=== PATIENT | female | born 1930 | race Caucasian/White ===

== ENCOUNTER 2017-10-06 20:29 | Emergency (ER) | payer MEDICARE ==
[2017-10-06 20:45] VITALS: BP 148/77
== END 2017-10-06 21:29 | disposition left against medical advice (07) ==
LOC: ER 20:29
DX: Z53.21 Procedure and treatment not carried out due to patient leaving prior to being seen by health care provider (principal)

== ENCOUNTER 2018-01-17 09:24 | Emergency (ER) | payer OTHER, MEDICARE ==
[2018-01-17] MEDS ORDERED: ACETAMINOPHEN 325 MG TABLET PO ONE (09:46)
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
[2018-01-17 11:02] LABS: HEMATOCRIT 39.3 % (36.0-47.0); HEMOGLOBIN 13.3 g/dL (12.0-15.5); MEAN CORPUSCULAR HEMOGLOBIN 28.3 pg (27.0-33.4); MEAN CORPUSCULAR HGB CONC 33.9 g/dL (32.0-36.0); MEAN CORPUSCULAR VOLUME 84 fl (80-97); PLATELET COUNT 146 10^3/uL (150-450); RED BLOOD COUNT 4.69 10^6/uL (3.72-5.28); RED CELL DISTRIBUTION WIDTH 14.5 % (11.5-14.0); WHITE BLOOD COUNT 9.6 10^3/uL (4.0-10.5)
[2018-01-17 11:13] LABS: ALANINE AMINOTRANSFERASE 20 U/L (9-52); ALBUMIN 4.1 g/dL (3.5-5.0); ALKALINE PHOSPHATASE 59 U/L (38-126); ANION GAP 9 (5-19); ASPARTATE AMINO TRANSFERASE 39 U/L (14-36); BILIRUBIN,DIRECT 0.3 mg/dL (0.0-0.4); BLOOD UREA NITROGEN 24 mg/dL (7-20); CALCIUM 9.4 mg/dL (8.4-10.2); CARBON DIOXIDE 28 mmol/L (22-30); CHLORIDE 109 mmol/L (98-107); GLUCOSE 135 mg/dL (75-110); LIPASE 103.3 U/L (23-300); POTASSIUM 3.8 mmol/L (3.6-5.0); SODIUM 145.6 mmol/L (137-145)
[2018-01-17 11:42] LABS: ABSOLUTE LYMPHOCYTES# (MANUAL) 0.5 10^3/uL (0.5-4.7); ABSOLUTE MONOCYTES # (MANUAL) 0.1 10^3/uL (0.1-1.4); BAND NEUTROPHILS % (MANUAL) 2 % (3-5); BASOPHILS % (MANUAL) 0 % (0-2); EOSINOPHILS % (MANUAL) 0 % (0-6); LYMPHOCYTES % (MANUAL) 5 % (13-45); MONOCYTES % (MANUAL) 1 % (3-13); SEGMENTED NEUTROPHILS % (MAN) 92 % (42-78); TOTAL CELLS COUNTED 100
[2018-01-17 11:43] LABS: OVALOCYTES 1+; PLATELET COMMENT DECREASED; POIKILOCYTOSIS 1+
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
[2018-01-17 13:21] VITALS: BP 145/72
== END 2018-01-17 13:20 | disposition home or self-care (01) ==
LOC: ER 09:24
DX: S22.088A Other fracture of T11-T12 vertebra, initial encounter for closed fracture (principal); S32.029A Unspecified fracture of second lumbar vertebra, initial encounter for closed fracture; R10.32 Left lower quadrant pain; V49.40XA Driver injured in collision with unspecified motor vehicles in traffic accident, initial encounter; I10 Essential (primary) hypertension; Z90.710 Acquired absence of both cervix and uterus
CPT/HCPCS: 36415; 74177; 80053; 83690; 85025; 99284

== ENCOUNTER 2018-01-19 18:42 | Inpatient (IN) | payer OTHER, MEDICARE ==
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
[2018-01-19] MEDS ORDERED: MAG HYDROX/AL HYDROX/SIMETH SUSP 30 ML UDCUP PO PRN (20:05)
[2018-01-19] MEDS ORDERED: OXYCODONE HCL IR 5 MG TABLET PO ONE (20:05)
[2018-01-19] MEDS ORDERED: ACETAMINOPHEN 325 MG TABLET PO PRN (20:05)
[2018-01-19] MEDS ORDERED: IPRATROPIUM/ALBUTEROL 0.5-2.5 MG/3 ML AMPUL NEB PRN (20:05)
[2018-01-19] MEDS ORDERED: LIDOCAINE 5% (700 MG) TRANSDERMAL ADH..PATCH TP ONE (20:05)
[2018-01-19] MEDS ORDERED: MAGNESIUM HYDROXIDE SUSP 30 ML UDCUP PO PRN (20:05)
[2018-01-19] MEDS ORDERED: ACETAMINOPHEN 325 MG TABLET PO ONE (20:05)
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
--- NOTE | 2018-01-19 20:32 | RADIOLOGY REPORT (SQ) ---
EXAM DESCRIPTION: CT PELVIS WITHOUT COMPLETED DATE/TIME: 01/19/2018 8:22 pm REASON FOR STUDY: left hip pain, eval occult fx COMPARISON: None. TECHNIQUE: CT scan of the pelvis performed without intravenous or oral contrast. Images reviewed wi th soft tissue and bone windows. Reconstructed coronal and sagittal MPR images reviewed. All images stored on PACS. All CT scanners at this facility use dose modulation, iterative reconstruction, and/or weight based d osing when appropriate to reduce radiation dose to as low as reasonably achievable (ALARA). [facility]: Dose Right [facility]: CareDose [facility]: Dose Right [facility]: Teradose 4D [facility]: Smart ParkVu RADIATION DOSE: CT Rad equipment meets quality standard of care and radiation dose reduction techniq ues were employed. CTDIvol: 12.0 mGy. DLP: 390 mGy-cm. mGy. LIMITATIONS: None. FINDINGS: PELVIC BONES: No acute fracture. No worrisome bone lesions. VISUALIZED SPINE: No acute findings. HIP(S): No acute fracture or dislocation. No worrisome bone lesions. PELVIC SOFT TISSUES: No significant findings. EXTRAPELVIC SOFT TISSUES: No significant findings. OTHER: No other significant finding. IMPRESSION: NO ACUTE OR SIGNIFICANT FINDINGS. TECHNICAL DOCUMENTATION: JOB ID: [id number] Quality ID # [id number]: Final reports with documentation of one or more dose reduction techniques (e.g., Au tomated exposure control, adjustment of the mA and/or kV according to patient size, use of iterative reconstruction technique) 2010 [employer]- All Rights Reserved Reading location - IP/workstation name: [email or web address]
[2018-01-19 21:26] LABS: ANION GAP 9 (5-19); BLOOD UREA NITROGEN 28 mg/dL (7-20); CALCIUM 9.4 mg/dL (8.4-10.2); CARBON DIOXIDE 25 mmol/L (22-30); CHLORIDE 109 mmol/L (98-107); CREATINE KINASE 73 U/L (30-135); GLUCOSE 97 mg/dL (75-110); SODIUM 142.8 mmol/L (137-145)
[2018-01-19 21:32] LABS: ABSOLUTE BASOPHILS # (AUTO) 0.1 10^3/uL (0.0-0.2); ABSOLUTE EOSINOPHILS # (AUTO) 0.1 10^3/uL (0.0-0.6); ABSOLUTE LYMPHOCYTES (AUTO) 1.1 10^3/uL (0.5-4.7); ABSOLUTE MONOCYTES (AUTO) 0.6 10^3/uL (0.1-1.4); ABSOLUTE NEUT (AUTO) 4.5 10^3/uL (1.7-8.2); EOSINOPHILS % (AUTO) 2.3 % (0-6); HEMATOCRIT 36.2 % (36.0-47.0); HEMOGLOBIN 12.3 g/dL (12.0-15.5); LYMPHOCYTES % (AUTO) 16.7 % (13-45); MEAN CORPUSCULAR HEMOGLOBIN 28.3 pg (27.0-33.4); MEAN CORPUSCULAR VOLUME 83 fl (80-97); MONOCYTES % (AUTO) 9.4 % (3-13); PLATELET COUNT 122 10^3/uL (150-450); RED BLOOD COUNT 4.35 10^6/uL (3.72-5.28); RED CELL DISTRIBUTION WIDTH 14.1 % (11.5-14.0); SEGMENTED NEUTROPHILS % (AUTO) 70.6 % (42-78); TOTAL CELLS COUNTED % (AUTO) 100 %; WHITE BLOOD COUNT 6.4 10^3/uL (4.0-10.5)
[2018-01-19] MEDS ORDERED: LACTULOSE SYRUP 20 GM/30 ML UDCUP PO ONE (23:15)
[2018-01-19] MEDS: HEPARIN SOD (PORCINE) 5,000 UNIT/ML 1 ML SYRINGE SUBCUT SCH (23:39)
[2018-01-20 00:13] LABS: APPEARANCE,URINE SLIGHTLY-CLOUDY; BILIRUBIN,URINE NEGATIVE (NEGATIVE); COLOR,URINE YELLOW; GLUCOSE, URINE NEGATIVE (NEGATIVE); KETONES,URINE 20 mg/dL (NEGATIVE); LEUKOCYTE ESTERASE,URINE NEGATIVE (NEGATIVE); NITRITE,URINE NEGATIVE (NEGATIVE); PROTEIN,URINE NEGATIVE (NEGATIVE); URINE SPECIFIC GRAVITY 1.019
[2018-01-20 05:02] LABS: ABSOLUTE BASOPHILS # (AUTO) 0.1 10^3/uL (0.0-0.2); ABSOLUTE EOSINOPHILS # (AUTO) 0.3 10^3/uL (0.0-0.6); ABSOLUTE LYMPHOCYTES (AUTO) 1.3 10^3/uL (0.5-4.7); ABSOLUTE MONOCYTES (AUTO) 0.5 10^3/uL (0.1-1.4); ABSOLUTE NEUT (AUTO) 2.2 10^3/uL (1.7-8.2); BASOPHILS % (AUTO) 1.2 % (0-2); EOSINOPHILS % (AUTO) 6.4 % (0-6); HEMATOCRIT 35.1 % (36.0-47.0); HEMOGLOBIN 11.9 g/dL (12.0-15.5); LYMPHOCYTES % (AUTO) 30.8 % (13-45); MEAN CORPUSCULAR HEMOGLOBIN 28.1 pg (27.0-33.4); MEAN CORPUSCULAR VOLUME 83 fl (80-97); MONOCYTES % (AUTO) 11.3 % (3-13); PLATELET COUNT 110 10^3/uL (150-450); RED BLOOD COUNT 4.25 10^6/uL (3.72-5.28); RED CELL DISTRIBUTION WIDTH 13.8 % (11.5-14.0); SEGMENTED NEUTROPHILS % (AUTO) 50.3 % (42-78); TOTAL CELLS COUNTED % (AUTO) 100 %; WHITE BLOOD COUNT 4.4 10^3/uL (4.0-10.5)
[2018-01-20 05:18] LABS: ANION GAP 11 (5-19); BLOOD UREA NITROGEN 28 mg/dL (7-20); CALCIUM 9.2 mg/dL (8.4-10.2); CARBON DIOXIDE 24 mmol/L (22-30); CHLORIDE 109 mmol/L (98-107); GLUCOSE 84 mg/dL (75-110); POTASSIUM 3.8 mmol/L (3.6-5.0); SODIUM 144.3 mmol/L (137-145)
[2018-01-20] MEDS: HEPARIN SOD (PORCINE) 5,000 UNIT/ML 1 ML SYRINGE SUBCUT SCH ×3 (05:22→21:13)
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
[2018-01-20] MEDS: KETOROLAC TROMETHAMINE INJ/PF 30 MG/1 ML SDV IV PRN (08:22)
[2018-01-20] MEDS: OXYCODONE HCL IR 5 MG TABLET PO PRN (10:28)
[2018-01-20] MEDS: LACTULOSE SYRUP 20 GM/30 ML UDCUP PO SCH (10:29)
[2018-01-20] MEDS: LIDOCAINE 5% (700 MG) TRANSDERMAL ADH..PATCH TP SCH (10:29)
[2018-01-20] MEDS: NA PHOS,M-B/NA PHOS,DI-BA (ADULT) 133 ML ENEMA PR SCH (10:30)
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
[2018-01-20] MEDS: AMLODIPINE BESYLATE 10 MG TABLET PO SCH (16:38)
[2018-01-21] MEDS: HEPARIN SOD (PORCINE) 5,000 UNIT/ML 1 ML SYRINGE SUBCUT SCH ×3 (05:08→21:22)
[2018-01-21] MEDS: KETOROLAC TROMETHAMINE INJ/PF 30 MG/1 ML SDV IV PRN (08:25)
[2018-01-21] MEDS: OXYCODONE HCL IR 5 MG TABLET PO PRN ×3 (10:27→22:07)
[2018-01-21] MEDS: LIDOCAINE 5% (700 MG) TRANSDERMAL ADH..PATCH TP SCH (10:27)
[2018-01-21] MEDS: AMLODIPINE BESYLATE 10 MG TABLET PO SCH (10:27)
[2018-01-21] MEDS: LACTULOSE SYRUP 20 GM/30 ML UDCUP PO SCH (10:27)
[2018-01-21] MEDS: BENAZEPRIL HCL 20 MG TABLET PO SCH (10:28)
[2018-01-21] MEDS: NA PHOS,M-B/NA PHOS,DI-BA (ADULT) 133 ML ENEMA PR SCH (12:34)
--- NOTE | 2018-01-21 13:30 | RADIOLOGY REPORT (SQ) ---
EXAM DESCRIPTION: MRI LUMBAR SPINE WITHOUT COMPLETED DATE/TIME: 01/21/2018 1:18 pm REASON FOR STUDY: compression fx L2/T12 COMPARISON: CT abdomen pelvis 01/25/2018 TECHNIQUE: Sagittal and Axial imaging includes T1, T2, STIR and gradient echo sequences. Coronal T2/ HASTE imaging. LIMITATIONS: None. FINDINGS: SEGMENTATION: No transitional anatomy. The lowest well-developed disc space is labeled L5- S1. ALIGNMENT: Anatomic. VERTEBRAE: 25-50% compression fracture T12, 25 to 50% upper endplate compression of L2. Both of the se are acute or subacute, with edema on STIR images. Mild retropulsion of bony cortex at both fractu res. BONE MARROW: Marrow edema at T12 and L2 related to subacute 25 to 50% compression deformities. No ma rrow signal abnormalities worrisome for aggressive marrow replacement process DISC SIGNAL: Diffuse decreased T2 weighted intervertebral disc signal. Diffuse multilevel degenerati ve disc changes with findings as follows: T11-12: Unremarkable. T12-L1: Unremarkable. L1-2: Mild diffuse posterior bulge and bony spurring and moderate facet and ligament hypertrophy cau ses mild central canal narrowing. Mild bilateral foraminal narrowing. At L2-3, mild diffuse posterior disc bulge and moderate bilateral facet and ligament hypertrophy caus es mild central canal narrowing. No right foraminal narrowing. Mild left foraminal narrowing. At L3-4, mild central canal stenosis results from broad diffuse disc bulge and facet and ligament hyp ertrophy. Mild bilateral foraminal narrowing. At L4-5, mild to moderate central canal stenosis results from broad diffuse posterior disc bulge and bulky bilateral facet hypertrophy. High-grade right, mild left foraminal narrowing. At L5-S1, no significant central or foraminal encroachment is present. POSTERIOR ELEMENTS: Generally intact. No pars defect evident. HARDWARE: None in the spine. CORD AND CONUS: Normal in size and signal intensity. Conus at the L1-2 level. SOFT TISSUES: No aortic aneurysm seen. No bulky retroperitoneal adenopathy or mass. No paraspinal mas s or fluid. LOWER THORACIC: Incompletely imaged. No stenosis seen. SACRUM: Visualized upper sacrum intact. OTHER: No other significant findings. IMPRESSION: Acute or subacute 25 to 50% compression deformities of T12 and L2 TECHNICAL DOCUMENTATION: JOB ID: [id number] [email or web address] / [email or web address]- All Rights Reserved Reading location - IP/workstation name: [email or web address]
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
[2018-01-22] MEDS: HEPARIN SOD (PORCINE) 5,000 UNIT/ML 1 ML SYRINGE SUBCUT SCH ×3 (05:27→21:49)
[2018-01-22] MEDS: OXYCODONE HCL IR 5 MG TABLET PO PRN ×2 (07:18→15:59)
[2018-01-22] MEDS: AMLODIPINE BESYLATE 10 MG TABLET PO SCH (09:04)
[2018-01-22] MEDS: LACTULOSE SYRUP 20 GM/30 ML UDCUP PO SCH (09:05)
[2018-01-22] MEDS: LIDOCAINE 5% (700 MG) TRANSDERMAL ADH..PATCH TP SCH (09:05)
[2018-01-22] MEDS: NA PHOS,M-B/NA PHOS,DI-BA (ADULT) 133 ML ENEMA PR SCH (09:05)
[2018-01-22] MEDS: BENAZEPRIL HCL 20 MG TABLET PO SCH (09:05)
--- NOTE | 2018-01-22 12:29 | PDOC PROGRESS REPORT ---
Subjective Progress Note for:: 01/22/18 Subjective:: Patient continues to complain of pain in her lower back and hip. She was able to walk 25 feet today and sat to the chair but after sitting in the chair for a while the pain against. Denies numbness or tingling. Reason For Visit: INTRACTABLE PAIN Physical Exam Vital Signs: Temp Pulse Resp BP Pulse Ox 98.2 F 68 16 142/57 H 97 01/22/18 07:17 01/22/18 11:37 01/22/18 11:37 01/22/18 07:17 01/22/18 11:37 Intake & Output 01/21/18 01/22/18 01/23/18 06:59 06:59 06:59 Intake Total 300 629 Balance 300 629 Weight 56.7 kg 58.7 kg General appearance: PRESENT: no acute distress, well-developed, well-nourished Head exam: PRESENT: atraumatic, normocephalic Eye exam: PRESENT: conjunctiva pink, EOMI, PERRLA. ABSENT: scleral icterus Ear exam: PRESENT: normal external ear exam Mouth exam: PRESENT: moist, tongue midline Neck exam: PRESENT: full ROM. ABSENT: carotid bruit, JVD, lymphadenopathy, thyromegaly Respiratory exam: PRESENT: unlabored Cardiovascular exam: PRESENT: RRR. ABSENT: diastolic murmur, rubs, systolic murmur Pulses: PRESENT: normal dorsalis pedis pul, +2 pedal pulses bilateral Vascular exam: PRESENT: normal capillary refill GI/Abdominal exam: PRESENT: normal bowel sounds, soft. ABSENT: distended, guarding, mass, organolmegaly, rebound, tenderness Rectal exam: PRESENT: deferred Musculoskeletal exam: PRESENT: other - Tenderness to palpation along the piriformis on the left, SI joint. Mild tenderness along lumbar spine. Intact straight leg raise against resistance. Intact plantar flexion/dorsiflexion. No sensory deficits. Negative straight leg raise. Negative logroll. No pain with range of motion of the left hip Neurological exam: PRESENT: alert, awake, oriented to person, oriented to place , oriented to time, oriented to situation, CN II-XII grossly intact. ABSENT: motor sensory deficit Psychiatric exam: PRESENT: appropriate affect, normal mood. ABSENT: homicidal ideation, suicidal ideation Skin exam: PRESENT: dry, intact, warm. ABSENT: cyanosis, rash Results Laboratory Results: 01/20/18 04:27 01/20/18 04:27 01/19/18 01/19/18 01/19/18 20:50 20:50 20:50 Creatine Kinase 73 74 Troponin I < 0.012 Impressions: Hip X-Ray 01/19/18 00:00 IMPRESSION: Osteopenic. No hip fracture identified. Pelvis CT 01/19/18 20:03 IMPRESSION: NO ACUTE OR SIGNIFICANT FINDINGS. Lumbar Spine MRI 01/21/18 11:30 IMPRESSION: Acute or subacute 25 to 50% compression deformities of T12 and L2 Assessment & Plan - Diagnosis (1) Vertebral compression fracture Is this a current diagnosis for this admission?: Yes Plan: Patient has findings of likely acute vertebral compression fractures. There is no evidence of cord compromise however there is compression along the left foramen. Given the acuity of the compression fractures it may be contributing to patient's symptoms. Thus I have recommended referral to [facility] for evaluation of the vertebral compression fractures
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
--- NOTE | 2018-01-22 17:18 | RADIOLOGY REPORT (SQ) ---
EXAM DESCRIPTION: CHEST SINGLE VIEW COMPLETED DATE/TIME: 01/22/2018 4:48 pm REASON FOR STUDY: SURGERY CLEARANCE COMPARISON: 01/19/2011. NUMBER OF VIEWS: One view. TECHNIQUE: Single frontal radiographic view of the chest acquired. LIMITATIONS: None. FINDINGS: LUNGS AND PLEURA: No opacities, masses or pneumothorax. No pleural effusion. Attenuated bl ood vessels and flattened june-diaphragms. MEDIASTINUM AND HILAR STRUCTURES: No masses. Contour normal. HEART AND VASCULAR STRUCTURES: Heart normal in size. Normal vasculature. BONES: No acute findings. HARDWARE: None in the chest. OTHER: No other significant finding. IMPRESSION: COPD. NO ACUTE RADIOGRAPHIC FINDING IN THE CHEST. TECHNICAL DOCUMENTATION: JOB ID: [id number] [employer]- All Rights Reserved Reading location - IP/workstation name: [email or web address]
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
--- NOTE | 2018-01-22 22:45 | EKG REPORT ---
SEVERITY:- ABNORMAL ECG - SINUS RHYTHM BORDERLINE LEFT AXIS DEVIATION LOW VOLTAGE IN FRONTAL LEADS NONSPECIFIC T ABNORMALITIES, LATERAL LEADS : Confirmed by: Sharon Leo MD 22-Jan-2018 22:44:46
[2018-01-23] MEDS: HEPARIN SOD (PORCINE) 5,000 UNIT/ML 1 ML SYRINGE SUBCUT SCH ×3 (05:52→21:08)
[2018-01-23] MEDS: OXYCODONE HCL IR 5 MG TABLET PO PRN ×3 (07:35→20:22)
[2018-01-23] MEDS: NA PHOS,M-B/NA PHOS,DI-BA (ADULT) 133 ML ENEMA PR SCH (11:01)
[2018-01-23] MEDS: LACTULOSE SYRUP 20 GM/30 ML UDCUP PO SCH ×2 (11:01→13:38)
[2018-01-23] MEDS ORDERED: LIDOCAINE 1% INJ-PF (10 MG/ML) 30 ML SDV ONE (11:14)
[2018-01-23 11:15] LABS: INTERNATIONAL RATION (INR) 0.95; PARTIAL THROMBOPLASTIN TIME 27.8 SEC (23.5-35.8); PROTHROMBIN TIME 13.2 SEC (11.4-15.4)
[2018-01-23] MEDS ORDERED: SODIUM BICARBONATE 8.4% INJ 50 MEQ/50 ML DISP.SYRIN ONE (11:15)
[2018-01-23] MEDS: LIDOCAINE 5% (700 MG) TRANSDERMAL ADH..PATCH TP SCH (13:38)
[2018-01-23] MEDS: AMLODIPINE BESYLATE 10 MG TABLET PO SCH (13:38)
[2018-01-23] MEDS: BENAZEPRIL HCL 20 MG TABLET PO SCH (13:38)
--- NOTE | 2018-01-23 17:23 | PDOC PROGRESS REPORT ---
Subjective Progress Note for:: 01/23/18 Subjective:: Patient still complaining of pain in the left hip. It appears that the plan was for her to have a possible kyphoplasty today however family still not completely on board and they would like to discuss and decide further before proceeding hopefully in a.m. As such surgery is on hold Reason For Visit: INTRACTABLE PAIN Physical Exam Vital Signs: Temp Pulse Resp BP Pulse Ox 98.2 F 66 20 146/75 H 97 01/23/18 16:03 01/23/18 16:03 01/23/18 16:03 01/23/18 16:03 01/23/18 16:03 Intake & Output 01/22/18 01/23/18 01/24/18 06:59 06:59 06:59 Intake Total 629 960 300 Output Total 400 Balance 629 560 300 Weight 58.7 kg 59.2 kg General appearance: PRESENT: no acute distress, other - Elderly frail female Head exam: PRESENT: atraumatic Respiratory exam: PRESENT: clear to auscultation ash. ABSENT: rales, rhonchi, wheezes Cardiovascular exam: PRESENT: RRR. ABSENT: diastolic murmur, rubs, systolic murmur Musculoskeletal exam: PRESENT: other - Back pain Results Laboratory Results: 01/20/18 04:27 01/20/18 04:27 01/19/18 01/19/18 01/19/18 20:50 20:50 20:50 Creatine Kinase 73 74 Troponin I < 0.012 Impressions: Hip X-Ray 01/19/18 00:00 IMPRESSION: Osteopenic. No hip fracture identified. Pelvis CT 01/19/18 20:03 IMPRESSION: NO ACUTE OR SIGNIFICANT FINDINGS. Lumbar Spine MRI 01/21/18 11:30 IMPRESSION: Acute or subacute 25 to 50% compression deformities of T12 and L2 Chest X-Ray 01/22/18 00:00 IMPRESSION: COPD. NO ACUTE RADIOGRAPHIC FINDING IN THE CHEST. Assessment & Plan - Diagnosis (1) Ambulatory dysfunction Is this a current diagnosis for this admission?: Yes (2) Vertebral compression fracture Is this a current diagnosis for this admission?: Yes Plan: Kyphoplasty in a.m. if family agreeable - Time Time Spent with patient: 15-24 minutes Medications reviewed and adjusted accordingly: Yes Anticipated discharge: Acute Rehab Within: within 48 hours
[2018-01-23] MEDS: ALPRAZOLAM 0.25 MG TABLET PO PRN (20:22)
[2018-01-24] MEDS: HEPARIN SOD (PORCINE) 5,000 UNIT/ML 1 ML SYRINGE SUBCUT SCH ×3 (05:40→21:50)
[2018-01-24] MEDS: OXYCODONE HCL IR 5 MG TABLET PO PRN ×2 (10:45→21:49)
[2018-01-24] MEDS: LACTULOSE SYRUP 20 GM/30 ML UDCUP PO SCH (10:46)
[2018-01-24] MEDS: LIDOCAINE 5% (700 MG) TRANSDERMAL ADH..PATCH TP SCH (10:46)
[2018-01-24] MEDS: AMLODIPINE BESYLATE 10 MG TABLET PO SCH (10:46)
[2018-01-24] MEDS: BENAZEPRIL HCL 20 MG TABLET PO SCH (10:47)
[2018-01-24] MEDS: NA PHOS,M-B/NA PHOS,DI-BA (ADULT) 133 ML ENEMA PR SCH (10:47)
--- NOTE | 2018-01-24 18:37 | PDOC PROGRESS REPORT ---
Subjective Progress Note for:: 01/24/18 Subjective:: Patient still complaining of pain in the left hip. After a long discussion and some back and forth family has now decided to go ahead with kyphoplasty. Dr. Storey aware Reason For Visit: INTRACTABLE PAIN Physical Exam Vital Signs: Temp Pulse Resp BP Pulse Ox 98.1 F 73 16 130/71 H 97 01/24/18 15:22 01/24/18 15:22 01/24/18 15:22 01/24/18 15:22 01/24/18 15:22 Intake & Output 01/23/18 01/24/18 01/25/18 06:59 06:59 06:59 Intake Total 960 300 318 Output Total 400 150 Balance 560 300 168 Weight 59.2 kg 54.9 kg General appearance: PRESENT: no acute distress, other - elderly and frail Head exam: PRESENT: atraumatic, normocephalic Eye exam: PRESENT: conjunctiva pink, EOMI, PERRLA. ABSENT: scleral icterus Ear exam: PRESENT: normal external ear exam Mouth exam: PRESENT: moist, tongue midline Neck exam: ABSENT: carotid bruit, JVD, lymphadenopathy, thyromegaly Respiratory exam: PRESENT: clear to auscultation ash. ABSENT: rales, rhonchi, wheezes Cardiovascular exam: PRESENT: RRR. ABSENT: diastolic murmur, rubs, systolic murmur Pulses: PRESENT: normal dorsalis pedis pul Vascular exam: PRESENT: normal capillary refill GI/Abdominal exam: PRESENT: normal bowel sounds, soft. ABSENT: distended, guarding, mass, organolmegaly, rebound, tenderness Rectal exam: PRESENT: deferred Extremities exam: ABSENT: calf tenderness, clubbing, pedal edema Musculoskeletal exam: PRESENT: tenderness - back. ABSENT: full ROM Neurological exam: PRESENT: alert, awake, oriented to person, oriented to place , oriented to time, oriented to situation, CN II-XII grossly intact. ABSENT: motor sensory deficit Psychiatric exam: PRESENT: appropriate affect, normal mood. ABSENT: homicidal ideation, suicidal ideation Skin exam: PRESENT: dry, intact, warm. ABSENT: cyanosis, rash Results Laboratory Results: 01/20/18 04:27 01/20/18 04:27 01/19/18 01/19/18 01/19/18 20:50 20:50 20:50 Creatine Kinase 73 74 Troponin I < 0.012 Impressions: Hip X-Ray 01/19/18 00:00 IMPRESSION: Osteopenic. No hip fracture identified. Pelvis CT 01/19/18 20:03 IMPRESSION: NO ACUTE OR SIGNIFICANT FINDINGS. Lumbar Spine MRI 01/21/18 11:30 IMPRESSION: Acute or subacute 25 to 50% compression deformities of T12 and L2 Chest X-Ray 01/22/18 00:00 IMPRESSION: COPD. NO ACUTE RADIOGRAPHIC FINDING IN THE CHEST. Assessment & Plan - Diagnosis (1) Ambulatory dysfunction Is this a current diagnosis for this admission?: Yes (2) Vertebral compression fracture Is this a current diagnosis for this admission?: Yes Plan: For kyphoplasty today - Time Time Spent with patient: 15-24 minutes Medications reviewed and adjusted accordingly: Yes Anticipated discharge: Acute Rehab Within: within 72 hours - Inpatient Certification Based on my medical assessment, after consideration of the patient's comorbidities, presenting symptoms, or acuity I expect that the services needed warrant INPATIENT care.: Yes Medical Necessity: Need for Surgery
[2018-01-24] MEDS: ALPRAZOLAM 0.25 MG TABLET PO PRN (21:49)
[2018-01-25] MEDS ORDERED: CEFAZOLIN 1 GM/D5W RTU 1 GM/50 ML RTUPB IV PRN (05:00)
[2018-01-25] MEDS: HEPARIN SOD (PORCINE) 5,000 UNIT/ML 1 ML SYRINGE SUBCUT SCH ×3 (05:46→21:30)
[2018-01-25] MEDS: OXYCODONE HCL IR 5 MG TABLET PO PRN ×2 (07:44→15:05)
[2018-01-25] MEDS ORDERED: DEXTROSE 5%-1/2 NORMAL SALINE 1,000 ML IV PRN (08:53)
[2018-01-25] MEDS ORDERED: SODIUM BICARBONATE 8.4% INJ 50 MEQ/50 ML DISP.SYRIN ONE (10:22)
[2018-01-25] MEDS ORDERED: LIDOCAINE 1% INJ-PF (10 MG/ML) 30 ML SDV ONE (10:22)
[2018-01-25] MEDS ORDERED: BACITRACIN ZINC OINTMENT 15 GM ONE (10:23)
[2018-01-25] MEDS ORDERED: ONDANSETRON HCL INJ/PF 4 MG/2 ML SDV ONE (10:43)
[2018-01-25] MEDS ORDERED: MIDAZOLAM 2 MG/2 ML INJ ONE (10:43)
[2018-01-25] MEDS ORDERED: FENTANYL CITRATE INJ/PF 100 MCG/2 ML AMPUL ONE (10:43)
[2018-01-25] MEDS ORDERED: PROPOFOL INJ 200 MG/20 ML VIAL IV ONE (10:44)
[2018-01-25] MEDS ORDERED: METHYLPREDNISOLONE ACETATE INJ 80 MG/1 ML VIAL ONE (11:42)
[2018-01-25] MEDS ORDERED: CEFAZOLIN INJ 1 GM VIAL ONE ×2 (11:42→13:39)
[2018-01-25] MEDS ORDERED: MEPERIDINE HCL/PF INJ 25 MG/1 ML DISP.SYRIN IV PRN (12:41)
[2018-01-25] MEDS ORDERED: FENTANYL CITRATE INJ/PF 100 MCG/2 ML AMPUL IV PRN (12:41)
[2018-01-25] MEDS ORDERED: DIPHENHYDRAMINE HCL 50 MG/ML VIAL IV PRN (12:41)
--- NOTE | 2018-01-25 13:36 | PROGRESS NOTE E ---
Progress Note NAME: JAZMINE OLIVER : 1930 AGE: 87Y DATE: 01/25/2018 ROOM: 428 The patient was seen on the following day after declining kyphoplasty. The nursing staff and attending physician hospitalist had discussed with the patient proceeding or not proceeding. The patient and her family have elected to proceed. In my personal discussion with him and on this day, they appear comfortable with the decision, understanding the risks and benefits to include but not limited to failure to obtain pain relief and allergic reaction, bleeding, nerve injury, paralysis, and . Arrangements will be made to seek a time as soon as possible within the OR for this procedure. DICTATING PHYSICIAN: MAMTA RICHARD M.D. [id number] PHY#: [id number] ID: [id number] JOB#: [id number] ACCT: [id number] cc:MAMTA RICHARD M.D. >
--- NOTE | 2018-01-25 13:37 | PROGRESS NOTE E ---
Progress Note NAME: JAZMINE OLIVER : 1930 AGE: 87Y DATE: 01/23/2018 ROOM: 428 INTERVAL HISTORY: The patient was seen and still wished to proceed with the kyphoplasty. Arrangements were made in the OR to proceed with the procedure roughly at noon. The patient's family, however, became involved, including the 2 daughters, and after extensive discussion with the patient and the family the decision was made by the family, as well as the patient, to hold on the procedure until the family could get additional information about kyphoplasty. DICTATING PHYSICIAN: MAMTA RICHARD M.D. [id number] PHY#: [id number] ID: [id number] JOB#: [id number] ACCT: [id number] cc:MAMTA RICHARD M.D. >
--- NOTE | 2018-01-25 14:17 | OPERATIVE REPORT E ---
Operative Report NAME: JAZMINE OLIVER : 1930 AGE: 87Y DATE OF SURGERY: 01/25/2018 ROOM: 428 PREOPERATIVE DIAGNOSIS: 1. T12 AND L2 COMPRESSION FRACTURES WITH INTRACTABLE PAIN. 2. LUMBAR SPINAL STENOSIS WITH LUMBAR RADICULOPATHY. OPERATION: 1. T12 and L2 Kyphoplasty under fluoroscopic guidance. 2. Lumbar epidural steroid injection with 160 mg of Depo-Medrol at the T12, L1 interspace under fluoroscopic guidance. SURGEON: MAMTA RICHARD M.D. ANESTHESIA: MAC BLOOD LOSS: 5 mL TISSUE REMOVED OR ALTERED: None. INDICATIONS: 1. Chronic pain from compression fractures. 2. Chronic lumbar radiculopathy. 3. Intractable pain. PROCEDURE: After obtaining informed consent, discussing the procedure with the patient and the family members, including the risks and benefits to include but not limited to bleeding, infection, nerve injury, lumbar paralysis, allergic reaction, failure to treat pain, and , she was taken to the operating room and placed comfortably in the prone position. Monitors were applied. MAC anesthesia was administered. She was prepped with chlorhexidine over the thoracic, lumbar, and sacral spine regions and then draped after appropriate drying time. Fluoroscopic C-arms were in place and adjusted as necessary. After draping, beginning at the T12-L1 interspace, the lumbar epidural steroid injection was performed. An 18 gauge Touhy needle was used in the left paramedian approach, entering into the epidural space without difficulty. No heme, cerebrospinal fluid, or paresthesias were noted. Epidurogram was performed, demonstrating good spread of the contrast into the epidural space. Omnipaque 180 was utilized and 150 mg of Depo-Medrol was then injected. All instrumentation was removed for this. Attention was then directed towards the kyphoplasty. Beginning at the T12 interspace. Beginning on the right side in a right peripedicular approach, the skin entrance site was identified and anesthetized with 1% lidocaine with bicarb. The subcutaneous tissues were anesthetized as well. A small incision was made in the skin. The Express trocar Stylette was then inserted under fluoroscopic guidance down to the junction of the rib and the right pedicle. Multiple views were taken in the AP and lateral imaging sequencing. The trocar was advanced into the vertebral body without difficulty. It was then drilled down to the anterior portion of the vertebral body in the paramedian location. The balloon was then inserted and inflated. This was repeated on the left side without difficulty. Once both balloons were satisfactorily inflated at the T12 leve, this procedure was repeated at the L2 level as described above. Cement was then mixed. Beginning at the L2 level on the right side, cement was injected for a total of 1.6 mL per side. Stylettes were then placed within the trocar and attention was directed towards the T12 level. A total of 4 mL of cement was injected into this side with 2 on each side. No evidence of extravasation, embolization of cement occur, nor did there appear to be any cement entering into the spinal canal. Stylettes were placed into the trocars. The cement was allowed to harden. All instrumentation was then removed. The region was cleansed. Sterile dressings were then applied. She was then taken to the PACU for further postoperative care and monitoring. DICTATING PHYSICIAN: MAMTA RICHARD M.D. [id number] PHY#: [id number] ID: [id number] JOB#: [id number] ACCT: [id number] cc:MAMTA RICHARD M.D. >
[2018-01-25] MEDS: LIDOCAINE 5% (700 MG) TRANSDERMAL ADH..PATCH TP SCH ×2 (14:40→15:26)
[2018-01-25] MEDS: BENAZEPRIL HCL 20 MG TABLET PO SCH (14:46)
[2018-01-25] MEDS: AMLODIPINE BESYLATE 10 MG TABLET PO SCH (14:46)
[2018-01-25] MEDS: LACTULOSE SYRUP 20 GM/30 ML UDCUP PO SCH (15:04)
--- NOTE | 2018-01-25 15:20 | PDOC PROGRESS REPORT ---
Subjective Progress Note for:: 01/25/18 Subjective:: She is s/p kyphoplasty, already feeling better Plan is for Rehab hopefully in am Reason For Visit: INTRACTABLE PAIN Physical Exam Vital Signs: Temp Pulse Resp BP Pulse Ox 98.4 F 67 16 135/82 H 94 01/25/18 13:25 01/25/18 13:55 01/25/18 13:55 01/25/18 13:55 01/25/18 13:55 Intake & Output 01/24/18 01/25/18 01/26/18 06:59 06:59 06:59 Intake Total 300 318 Output Total 150 Balance 300 168 Weight 54.9 kg 54.6 kg General appearance: PRESENT: no acute distress, thin - elderly and frail Head exam: PRESENT: atraumatic, normocephalic Eye exam: PRESENT: conjunctiva pink, EOMI, PERRLA. ABSENT: scleral icterus Ear exam: PRESENT: normal external ear exam Mouth exam: PRESENT: moist, tongue midline Neck exam: ABSENT: carotid bruit, JVD, lymphadenopathy, thyromegaly Respiratory exam: PRESENT: clear to auscultation ash. ABSENT: rales, rhonchi, wheezes Cardiovascular exam: PRESENT: RRR. ABSENT: diastolic murmur, rubs, systolic murmur Pulses: PRESENT: normal dorsalis pedis pul Vascular exam: PRESENT: normal capillary refill GI/Abdominal exam: PRESENT: normal bowel sounds, soft. ABSENT: distended, guarding, mass, organolmegaly, rebound, tenderness Rectal exam: PRESENT: deferred Extremities exam: PRESENT: full ROM. ABSENT: calf tenderness, clubbing, pedal edema Neurological exam: PRESENT: alert, awake, oriented to person, oriented to place , oriented to time, oriented to situation, CN II-XII grossly intact. ABSENT: motor sensory deficit Psychiatric exam: PRESENT: appropriate affect, normal mood. ABSENT: homicidal ideation, suicidal ideation Skin exam: PRESENT: dry, intact, warm. ABSENT: cyanosis, rash Results Laboratory Results: 01/20/18 04:27 01/20/18 04:27 01/19/18 01/19/18 01/19/18 20:50 20:50 20:50 Creatine Kinase 73 74 Troponin I < 0.012 Impressions: Hip X-Ray 01/19/18 00:00 IMPRESSION: Osteopenic. No hip fracture identified. Pelvis CT 01/19/18 20:03 IMPRESSION: NO ACUTE OR SIGNIFICANT FINDINGS. Lumbar Spine MRI 01/21/18 11:30 IMPRESSION: Acute or subacute 25 to 50% compression deformities of T12 and L2 Chest X-Ray 01/22/18 00:00 IMPRESSION: COPD. NO ACUTE RADIOGRAPHIC FINDING IN THE CHEST. Assessment & Plan - Diagnosis (1) Ambulatory dysfunction Is this a current diagnosis for this admission?: Yes Plan: Cont Physical therapy (2) Vertebral compression fracture Is this a current diagnosis for this admission?: Yes Plan: s/p kyphoplasty - Time Time Spent with patient: 15-24 minutes Medications reviewed and adjusted accordingly: Yes Anticipated discharge: Acute Rehab Within: within 48 hours - Inpatient Certification Based on my medical assessment, after consideration of the patient's comorbidities, presenting symptoms, or acuity I expect that the services needed warrant INPATIENT care.: Yes Medical Necessity: Risk of Complication if Not Cared For in Hospital
[2018-01-25] MEDS: NA PHOS,M-B/NA PHOS,DI-BA (ADULT) 133 ML ENEMA PR SCH (15:26)
--- NOTE | 2018-01-25 16:07 | RADIOLOGY REPORT (SQ) ---
EXAM DESCRIPTION: THORACOLUMBAR SPINE AP/LAT; NO CHG FLUORO COMPLETED DATE/TIME: 01/25/2018 2:58 pm REASON FOR STUDY: KYPHOPLASTY T12 AND L2, EPIDURAL INJECTION ASST WITH FLUORO IN OR; KYPHOPLASTY T1 2 AND L2 ASST WITH FLUORO IN OR COMPARISON: MRI lumbar spine 01/21/2018 FLUOROSCOPY TIME: 7.9 minutes 55 digital images saved to PACS. TECHNIQUE: Intra-operative images acquired during surgical procedure to evaluate progress. NUMBER OF IMAGES: 55 digital images LIMITATIONS: None. FINDINGS: Intra procedural imaging and fluoro during spinal intervention by Dr. Storey. Please se e his operative report for further details IMPRESSION: Intra procedural imaging and fluoro COMMENT: Quality ID [id number]: Final reports for procedures using fluoroscopy that document radiation exp osure indices, or exposure time and number of fluorographic images (if radiation exposure indices are not available) Please consult full operative report of the attending physician for description of the procedure. TECHNICAL DOCUMENTATION: JOB ID: [id number] [employer]- All Rights Reserved Reading location - IP/workstation name: [facility]
--- NOTE | 2018-01-25 16:07 | RADIOLOGY REPORT (SQ) ---
EXAM DESCRIPTION: THORACOLUMBAR SPINE AP/LAT; NO CHG FLUORO COMPLETED DATE/TIME: 01/25/2018 2:58 pm REASON FOR STUDY: KYPHOPLASTY T12 AND L2, EPIDURAL INJECTION ASST WITH FLUORO IN OR; KYPHOPLASTY T1 2 AND L2 ASST WITH FLUORO IN OR COMPARISON: MRI lumbar spine 01/21/2018 FLUOROSCOPY TIME: 7.9 minutes 55 digital images saved to PACS. TECHNIQUE: Intra-operative images acquired during surgical procedure to evaluate progress. NUMBER OF IMAGES: 55 digital images LIMITATIONS: None. FINDINGS: Intra procedural imaging and fluoro during spinal intervention by Dr. Storey. Please se e his operative report for further details IMPRESSION: Intra procedural imaging and fluoro COMMENT: Quality ID [id number]: Final reports for procedures using fluoroscopy that document radiation exp osure indices, or exposure time and number of fluorographic images (if radiation exposure indices are not available) Please consult full operative report of the attending physician for description of the procedure. TECHNICAL DOCUMENTATION: JOB ID: [id number] [employer]- All Rights Reserved Reading location - IP/workstation name: [facility]
[2018-01-25] MEDS: CEFAZOLIN 1 GM/D5W RTU 1 GM/50 ML RTUPB IV SCH (21:29)
[2018-01-25] MEDS: PHARMACY COMMUNICATION ORDER MC SCH (21:30)
[2018-01-26] MEDS: CEFAZOLIN 1 GM/D5W RTU 1 GM/50 ML RTUPB IV SCH (05:45)
[2018-01-26] MEDS: HEPARIN SOD (PORCINE) 5,000 UNIT/ML 1 ML SYRINGE SUBCUT SCH ×3 (05:47→22:32)
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
--- NOTE | 2018-01-26 10:40 | PDOC PROGRESS REPORT ---
Subjective Progress Note for:: 01/26/18 Subjective:: She is s/p kyphoplasty, already feeling better Plan is for Rehab hopefully in am She was evaluated by Dr. Samano this am and has been accepted to Rehab Reason For Visit: INTRACTABLE PAIN Physical Exam Vital Signs: Temp Pulse Resp BP Pulse Ox 98.0 F 69 20 141/72 H 100 01/26/18 07:43 01/26/18 07:43 01/26/18 07:43 01/26/18 07:43 01/26/18 07:43 Intake & Output 01/25/18 01/26/18 01/27/18 06:59 06:59 06:59 Intake Total 318 1190 Output Total 150 10 Balance 168 1180 Weight 54.6 kg 52.4 kg General appearance: PRESENT: no acute distress, thin - elderly and frail Head exam: PRESENT: atraumatic, normocephalic Eye exam: PRESENT: conjunctiva pink, EOMI, PERRLA. ABSENT: scleral icterus Ear exam: PRESENT: normal external ear exam Mouth exam: PRESENT: moist, tongue midline Neck exam: ABSENT: carotid bruit, JVD, lymphadenopathy, thyromegaly Respiratory exam: PRESENT: clear to auscultation ash. ABSENT: rales, rhonchi, wheezes Cardiovascular exam: PRESENT: RRR. ABSENT: diastolic murmur, rubs, systolic murmur Pulses: PRESENT: normal dorsalis pedis pul Vascular exam: PRESENT: normal capillary refill GI/Abdominal exam: PRESENT: normal bowel sounds, soft. ABSENT: distended, guarding, mass, organolmegaly, rebound, tenderness Rectal exam: PRESENT: deferred Extremities exam: ABSENT: calf tenderness, clubbing, pedal edema Neurological exam: PRESENT: alert, awake, oriented to person, oriented to place , oriented to time, oriented to situation, CN II-XII grossly intact. ABSENT: motor sensory deficit Psychiatric exam: PRESENT: appropriate affect, normal mood. ABSENT: homicidal ideation, suicidal ideation Skin exam: PRESENT: dry, intact, warm. ABSENT: cyanosis, rash Results Laboratory Results: 01/20/18 04:27 01/20/18 04:27 01/19/18 01/19/18 01/19/18 20:50 20:50 20:50 Creatine Kinase 73 74 Troponin I < 0.012 Impressions: Hip X-Ray 01/19/18 00:00 IMPRESSION: Osteopenic. No hip fracture identified. Pelvis CT 01/19/18 20:03 IMPRESSION: NO ACUTE OR SIGNIFICANT FINDINGS. Lumbar Spine MRI 01/21/18 11:30 IMPRESSION: Acute or subacute 25 to 50% compression deformities of T12 and L2 Chest X-Ray 01/22/18 00:00 IMPRESSION: COPD. NO ACUTE RADIOGRAPHIC FINDING IN THE CHEST. Fluoroscopy 01/25/18 00:00 IMPRESSION: Intra procedural imaging and fluoro Thoracolumbar Spine 01/25/18 00:00 IMPRESSION: Intra procedural imaging and fluoro Assessment & Plan - Diagnosis (1) Ambulatory dysfunction Is this a current diagnosis for this admission?: Yes (2) Vertebral compression fracture Is this a current diagnosis for this admission?: Yes Plan: Secondary to traumatic vertebral compression fracture status post kyphoplasty (3) HTN (hypertension) Qualifiers: Hypertension type: essential hypertension Qualified Code(s): I10 - Essential (primary) hypertension Is this a current diagnosis for this admission?: Yes (4) Malnutrition compromising bodily function Is this a current diagnosis for this admission?: Yes Plan: Patient is underweight likely nutritional and this will likely affect her healing - Time Time Spent with patient: 15-24 minutes Medications reviewed and adjusted accordingly: Yes Anticipated discharge: Acute Rehab Within: within 24 hours - Inpatient Certification Based on my medical assessment, after consideration of the patient's comorbidities, presenting symptoms, or acuity I expect that the services needed warrant INPATIENT care.: Yes Medical Necessity: Need for Pain Control
[2018-01-26] MEDS: NA PHOS,M-B/NA PHOS,DI-BA (ADULT) 133 ML ENEMA PR SCH (11:11)
[2018-01-26] MEDS: AMLODIPINE BESYLATE 10 MG TABLET PO SCH (11:24)
[2018-01-26] MEDS: BENAZEPRIL HCL 20 MG TABLET PO SCH (11:24)
[2018-01-26] MEDS: LIDOCAINE 5% (700 MG) TRANSDERMAL ADH..PATCH TP SCH (11:24)
[2018-01-26] MEDS: LACTULOSE SYRUP 20 GM/30 ML UDCUP PO SCH (11:24)
[2018-01-26] MEDS: PHARMACY COMMUNICATION ORDER MC SCH (22:32)
[2018-01-27] MEDS: HEPARIN SOD (PORCINE) 5,000 UNIT/ML 1 ML SYRINGE SUBCUT SCH (05:30)
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
--- NOTE | 2018-01-27 08:27 | PROGRESS NOTE E ---
Progress Note NAME: JAZMINE OLIVER : 1930 AGE: 87Y DATE: 01/27/2018 ROOM: 428 INTERVAL HISTORY: The patient is 2 days postop from her 2-level kyphoplasty and lumbar epidural steroid injection. She notes moderate improvement in the pain in her back. She has been able to walk to some degree. She continues to have pain in the left hip although this seems to be improving mildly as well. She denies any other problems. Plans for transfer to rehab in [place] have been arranged and we are expecting this today. PHYSICAL EXAMINATION: Vital signs are stable. She is awake, cooperative, interactive. Speech is clear and fluent. Dressings and wounds on back appear intact. No evidence of swelling, inflammation, induration, or drainage. IMPRESSION: Status post kyphoplasty, 2 level, T12, L2, and lumbar epidural steroid injection T12-L1. RECOMMENDATIONS: Agree with discharge to rehab and follow up in outpatient pain clinic as necessary. The patient has been instructed as to the same, and no further recommendations are made. DICTATING PHYSICIAN: MAMTA RICHARD M.D. [id number] PHY#: [id number] ID: [id number] JOB#: [id number] ACCT: [id number] cc: >
[2018-01-27 08:49] VITALS: BP 147/71
[2018-01-27] MEDS: BENAZEPRIL HCL 20 MG TABLET PO SCH (09:13)
[2018-01-27] MEDS: AMLODIPINE BESYLATE 10 MG TABLET PO SCH (09:14)
[2018-01-27] MEDS: LACTULOSE SYRUP 20 GM/30 ML UDCUP PO SCH (09:14)
[2018-01-27] MEDS: LIDOCAINE 5% (700 MG) TRANSDERMAL ADH..PATCH TP SCH (09:14)
[2018-01-27] MEDS: NA PHOS,M-B/NA PHOS,DI-BA (ADULT) 133 ML ENEMA PR SCH (09:15)
== END 2018-01-27 10:28 | DRG 516 ==
LOC: ER 18:42 → EH 20:18 → 4S 23:20
PROVIDERS: ADMIT Internal Medicine; ATTEND Internal Medicine
PROC: 0QS03ZZ Reposition Lumbar Vertebra, Percutaneous Approach (ICD-10-PCS; 2018-01-25)
PROC: 0QU03JZ Supplement Lumbar Vertebra with Synthetic Substitute, Percutaneous Approach (ICD-10-PCS; 2018-01-25)
PROC: 0PU43JZ Supplement Thoracic Vertebra with Synthetic Substitute, Percutaneous Approach (ICD-10-PCS; 2018-01-25)
PROC: 3E0R33Z Introduction of Anti-inflammatory into Spinal Canal, Percutaneous Approach (ICD-10-PCS; 2018-01-25)
PROC: 0PS43ZZ Reposition Thoracic Vertebra, Percutaneous Approach (ICD-10-PCS; principal; 2018-01-25 12:00)
DX: S22.088A Other fracture of T11-T12 vertebra, initial encounter for closed fracture (principal); S32.019A Unspecified fracture of first lumbar vertebra, initial encounter for closed fracture; S32.029A Unspecified fracture of second lumbar vertebra, initial encounter for closed fracture; D62 Acute posthemorrhagic anemia; E46 Unspecified protein-calorie malnutrition; Z68.1 Body mass index [BMI] 19.9 or less, adult; I10 Essential (primary) hypertension; J44.9 Chronic obstructive pulmonary disease, unspecified; K59.00 Constipation, unspecified; M54.16 Radiculopathy, lumbar region; M25.552 Pain in left hip; V49.9XXA Car occupant (driver) (passenger) injured in unspecified traffic accident, initial encounter; Y93.9 Activity, unspecified; Y92.9 Unspecified place or not applicable
CPT/HCPCS: 01936; 36415; 71045; 72080; 72148; 72192; 80048; 81001; 82550; 84484; 85025; 85610; 85730; 93005; 93010; 99285; C1713; G8987-GO; G8988-GO; J0690; J1040; J1885; J2250; J2405; J2704; J3010; J3490; Q9966

== ENCOUNTER → 2018-07-10 | Outpatient (CLI) | payer MEDICARE, OTHER ==
--- NOTE | 2018-07-10 17:07 | RADIOLOGY REPORT (SQ) ---
EXAM DESCRIPTION: KUB/ABDOMEN (SINGLE VIEW) COMPLETED DATE/TIME: 07/10/2018 4:44 pm REASON FOR STUDY: R10.30 LOWER ABDOMINAL PAIN, UNSPECIFIED R10.30 LOWER ABDOMINAL PAIN, UNSPECIFIED R19.04 LEFT LOWER QUADRANT ABDOMINAL SWELLING, MASS AND LUMP COMPARISON: None. NUMBER OF VIEWS: One view. TECHNIQUE: Supine radiographic image of the abdomen acquired. LIMITATIONS: None. FINDINGS: BOWEL GAS PATTERN: Normal bowel gas pattern. No dilated loops. CALCIFICATIONS: No suspicious calcifications. SOFT TISSUES: No gross mass or suggestion of organomegaly. HARDWARE: None in the abdomen. BONES: No acute fracture. Degenerative changes in the spine with scoliosis. Previous kyphoplasty. No worrisome bone lesions. OTHER: No other significant finding. IMPRESSION: NO RADIOGRAPHIC EVIDENCE FOR ACUTE ABDOMINAL DISEASE. TECHNICAL DOCUMENTATION: JOB ID: [id number] [employer]- All Rights Reserved Reading location - IP/workstation name: [email or web address]
== END ==
LOC: RAD 16:28
PROVIDERS: ATTEND Pain Medicine Interventional Pain Medicine
DX: R10.30 Lower abdominal pain, unspecified (principal); R19.04 Left lower quadrant abdominal swelling, mass and lump
CPT/HCPCS: 74018

== ENCOUNTER → 2018-07-12 | Outpatient (CLI) | payer MEDICARE, OTHER ==
[2018-07-12 14:28] LABS: ABSOLUTE EOSINOPHILS # (AUTO) 0.1 10^3/uL (0.0-0.6); ABSOLUTE LYMPHOCYTES (AUTO) 1.1 10^3/uL (0.5-4.7); ABSOLUTE MONOCYTES (AUTO) 0.2 10^3/uL (0.1-1.4); BASOPHILS % (AUTO) 1.2 % (0-2); EOSINOPHILS % (AUTO) 2.2 % (0-6); HEMATOCRIT 38.2 % (36.0-47.0); HEMOGLOBIN 12.8 g/dL (12.0-15.5); LYMPHOCYTES % (AUTO) 32.6 % (13-45); MEAN CORPUSCULAR HEMOGLOBIN 27.3 pg (27.0-33.4); MEAN CORPUSCULAR HGB CONC 33.6 g/dL (32.0-36.0); MEAN CORPUSCULAR VOLUME 81 fl (80-97); MONOCYTES % (AUTO) 5.8 % (3-13); PLATELET COUNT 179 10^3/uL (150-450); RED CELL DISTRIBUTION WIDTH 14.3 % (11.5-14.0); SEGMENTED NEUTROPHILS % (AUTO) 58.2 % (42-78); TOTAL CELLS COUNTED % (AUTO) 100 %; WHITE BLOOD COUNT 3.4 10^3/uL (4.0-10.5)
[2018-07-12 14:28] LABS: APPEARANCE,URINE CLEAR; BILIRUBIN,URINE NEGATIVE (NEGATIVE); COLOR,URINE YELLOW; GLUCOSE, URINE NEGATIVE (NEGATIVE); KETONES,URINE NEGATIVE (NEGATIVE); LEUKOCYTE ESTERASE,URINE NEGATIVE (NEGATIVE); NITRITE,URINE NEGATIVE (NEGATIVE); PROTEIN,URINE NEGATIVE (NEGATIVE); URINE SPECIFIC GRAVITY 1.038; UROBILINOGEN,URINE NEGATIVE mg/dL (<2.0)
[2018-07-12 14:45] LABS: ALANINE AMINOTRANSFERASE 16 U/L (9-52); ALKALINE PHOSPHATASE 60 U/L (38-126); AMYLASE 127 U/L (30-110); ANION GAP 10 (5-19); ASPARTATE AMINO TRANSFERASE 22 U/L (14-36); BILIRUBIN,DIRECT 0.4 mg/dL (0.0-0.4); BILIRUBIN,TOTAL 0.8 mg/dL (0.2-1.3); BLOOD UREA NITROGEN 19 mg/dL (7-20); CALCIUM 9.6 mg/dL (8.4-10.2); CARBON DIOXIDE 26 mmol/L (22-30); CHLORIDE 108 mmol/L (98-107); GLUCOSE 127 mg/dL (75-110); LIPASE 155.7 U/L (23-300); POTASSIUM 3.6 mmol/L (3.6-5.0); SODIUM 143.7 mmol/L (137-145); TOTAL PROTEIN 6.7 g/dL (6.3-8.2)
[2018-07-13 10:32] LABS: CANCER ANTIGEN (CA) 125 17.9 U/mL (0.0-38.1)
== END ==
LOC: OD 13:03
PROVIDERS: ATTEND Pain Medicine Interventional Pain Medicine
DX: R63.4 Abnormal weight loss (principal); K86.2 Cyst of pancreas; S32.020S Wedge compression fracture of second lumbar vertebra, sequela; R10.30 Lower abdominal pain, unspecified; X58.XXXS Exposure to other specified factors, sequela
CPT/HCPCS: 36415; 80053; 81001; 82150; 82728; 83690; 85025; 86301; 86304; 87086

== ENCOUNTER → 2018-07-12 | Outpatient (CLI) | payer MEDICARE, OTHER ==
--- NOTE | 2018-07-12 09:58 | RADIOLOGY REPORT (SQ) ---
EXAM DESCRIPTION: CT ABD/PELVIS WITH IV ORAL COMPLETED DATE/TIME: 07/12/2018 9:21 am REASON FOR STUDY: R10.30 LOWER ABDOMINAL PAIN, UNSPECIFIED/R19.04 LEFT LOWER QUADRANT ABDOMINAL R10. 30 LOWER ABDOMINAL PAIN, UNSPECIFIED R19.04 LEFT LOWER QUADRANT ABDOMINAL SWELLING, MASS AND LUMP COMPARISON: 01/17/2018 TECHNIQUE: CT scan of the abdomen and pelvis performed using helical scanning technique with dynamic intravenous contrast injection. Patient was given oral contrast. Images reviewed with lung, soft ti ssue, and bone windows. Reconstructed coronal and sagittal MPR images reviewed. Delayed images for ev aluation of the urinary system also acquired. All images stored on PACS. All CT scanners at this facility use dose modulation, iterative reconstruction, and/or weight based d osing when appropriate to reduce radiation dose to as low as reasonably achievable (ALARA). [facility]: Dose Right [facility]: CareDose [facility]: Dose Right [facility]: Teradose 4D [facility]: Endocyte CONTRAST TYPE AND DOSE: contrast/concentration: Isovue 350.00 mg/ml; Total Contrast Delivered: 61.0 ml; Total Saline Delivered: 65.0 ml RENAL FUNCTION: Creatinine 1.5 RADIATION DOSE: CT Rad equipment meets quality standard of care and radiation dose reduction techniq ues were employed. CTDIvol: 2.7 - 3.2 mGy. DLP: 275 mGy-cm.. LIMITATIONS: None. FINDINGS: LOWER CHEST: No significant findings. No nodules or infiltrates. LIVER: Normal size. No masses. No dilated ducts. SPLEEN: Normal size. No focal lesions. PANCREAS: Stable 15 mm cystic lesion along the the ventral aspect of the pancreatic body (axial image 27). Additional stable 1.0 cm cystic lesion within the distal body (axial image 25). . GALLBLADDER: Decompressed. No radiopaque stones. ADRENAL GLANDS: No significant masses or asymmetry. RIGHT KIDNEY AND URETER: No solid masses. No significant calcifications. No hydronephrosis or hyd roureter. LEFT KIDNEY AND URETER: Unchanged hypodense interpolar lesion, likely cyst. No new masses. No sign ificant calcifications. No hydronephrosis or hydroureter. AORTA AND VESSELS: Tortuous abdominal aorta. No aneurysm. Scattered aortoiliac atherosclerosis. RETROPERITONEUM: No retroperitoneal adenopathy, hemorrhage or masses. BOWEL AND PERITONEAL CAVITY: No masses or inflammatory changes. No free fluid or peritoneal masses. APPENDIX: Not identified. No inflammatory change within the right lower quadrant. PELVIS: No mass. No free fluid. Unremarkable urinary bladder. Scattered pelvic phleboliths. ABDOMINAL WALL: No masses. Unchanged wide-mouth fat containing herniation within the right posterior flank. Asymmetric atrophy of the right rectus musculature. BONES: No acute bony abnormality. No suspicious osseous lesions. Evidence of prior T12 and L2 kypho plasty. Lumbar spondylosis and lower lumbar facet arthropathy. Decreased osseous mineralization. OTHER: No other significant finding. IMPRESSION: 1. No evidence of acute intra-abdominal/pelvic process. 2. Stable cystic lesions within the pancreas. 3. Asymmetric atrophy of the right rectus musculature which may account for patient's reported sympt oms of left abdominal mass. TECHNICAL DOCUMENTATION: JOB ID: [id number] Quality ID # [id number]: Final reports with documentation of one or more dose reduction techniques (e.g., Au tomated exposure control, adjustment of the mA and/or kV according to patient size, use of iterative reconstruction technique) 2010 [employer]- All Rights Reserved Reading location - IP/workstation name: [email or web address]
== END ==
LOC: RAD 08:27
PROVIDERS: ATTEND Pain Medicine Interventional Pain Medicine
DX: R10.30 Lower abdominal pain, unspecified (principal); R19.04 Left lower quadrant abdominal swelling, mass and lump
CPT/HCPCS: 74177; 82565